=== PATIENT | male | born 1995 | race Caucasian/White ===

== ENCOUNTER 2023-11-15 23:49 | Emergency (ER) | payer BC, SELFPAY ==
[2023-11-15 23:51] VITALS: BP 169/93; PULSE 91; RESP 18; TEMP 36.8; O2SAT 99
--- NOTE | 2023-11-15 23:56 | ED.MALEGU ---
HPI - Male Genitourinary General Chief complaint: Urogenital-Male Stated complaint: urogenital male Time Seen by Provider: 11/15/23 23:52 History of Present Illness HPI Narrative: pt had unprotected sex recently and started having some penile burning especially with urination. Pt has not noticed any discharge. Pt called partner and she was having similar symptoms but has not been tested. Related Data Home Medications Medication Instructions Recorded Confirmed No Home Medications 11/15/23 11/15/23 Allergies Allergy/AdvReac Type Severity Reaction Status Date / Time No Known Allergies Allergy Verified 11/15/23 23:55 Review of Systems Review of Systems: All systems reviewed & are unremarkable except as noted in HPI and below Exam Const: General: healthy appearing and no acute distress Nutritional Appearance: well nourished Chest: Chest palpation & inspection: normal inspection of the chest Resp: Effort & Inspection: normal respiratory effort Auscultation: clear to auscultation bilaterally Cardio: Rate: regular rate Rhythm: regular rhythm GI: GI Palp: Yes Soft to palpation and No Tenderness to palpation present (GI) Auscultation: normal bowel sounds : General: Yes bladder normal to palpation Male General Exam: Yes normal external exam and No Genital lesions present Penis: Yes normal penis and Yes circumcised Scrotum: scrotum normal Testes: Testes normal Skin: General skin exam: normal color Neuro: General: patient oriented x3, moves all extremities, no meningeal signs and no focal motor deficits Speech: normal speech Extrem: General: normal to inspection and no clubbing, cyanosis or edema Psych: Mental Status: mental status grossly normal Affect: normal affect Attitude: cooperative Course Vital Signs Vital signs: Vital Signs Temperature 98.2 F 11/15/23 23:51 Pulse Rate 91 11/15/23 23:51 Respiratory Rate 18 11/15/23 23:51 Blood Pressure 169/93 H 11/15/23 23:51 Pulse Oximetry 99 11/15/23 23:51 Oxygen Delivery Room Air 11/15/23 23:51 Temperature 98.2 F 11/15/23 23:51 Pulse Rate 91 11/15/23 23:51 Respiratory Rate 18 11/15/23 23:51 Blood Pressure 169/93 H 11/15/23 23:51 Pulse Oximetry 99 11/15/23 23:51 Oxygen Delivery Room Air 11/15/23 23:51 MDM - Male Genitourinary MDM Narrative Medical decision making narrative: Pt has discomfort at tip of penis and dysuria but no dscharge. Pt had unprotected sex and is concerned about STI. Will treat with rocephin and zithormax to be safe, Discharge Plan Discharge Clinical Impression: Urethritis Patient Disposition: Home, Self-Care Condition: Stable Instructions: Antibiotic Form, Sexually Transmitted Diseases (ED) Prescriptions: No Action No Home Medications Follow-up/Referrals: UNKNOWN,DOCTOR [Primary Care Provider] -
[2023-11-16] MEDS: AZITHROMYCIN 250 MG TABLET 1000 MG PO (00:14)
[2023-11-16] MEDS: cefTRIAXone 250 MG VIAL IM (00:14)
--- NOTE | 2023-11-16 00:20 | PC.NURSE ---
patient was given crackers to eat with antibiotics. drinking water
== END 2023-11-16 00:32 | disposition home or self-care (01) ==
LOC: CHSED 11-16 00:02
PROVIDERS: Emergency Provider Emergency Medicine
DX: N34.2 Other urethritis (principal)
CPT/HCPCS: 96372; 99283; A9270; J0696